=== PATIENT | male | born 1990 | race Caucasian/White ===

== ENCOUNTER 2017-02-14 08:15 | Emergency (ER) | payer SELFPAY ==
[~2017-02-14] VITALS: Ht 180.3 cm; Wt 102.0 kg
== END 2017-02-14 08:50 | disposition short-term general hospital (02) ==
LOC: ER 08:15
PROC: 0HQ1XZZ Repair Face Skin, External Approach (ICD-10-PCS; principal; 2017-02-14)
DX: S01.111A Laceration without foreign body of right eyelid and periocular area, initial encounter (principal); S01.81XA Laceration without foreign body of other part of head, initial encounter; I10 Essential (primary) hypertension; Z88.6 Allergy status to analgesic agent; Z79.82 Long term (current) use of aspirin; Z91.018 Allergy to other foods; Z79.899 Other long term (current) drug therapy; W50.0XXA Accidental hit or strike by another person, initial encounter; Y93.75 Activity, martial arts; Y99.8 Other external cause status